=== PATIENT | male | born 1980 | race Asian ===

== ENCOUNTER 2017-05-17 03:16 | Emergency (ER) | payer SELFPAY ==
[~2017-05-17] VITALS: Ht 172.7 cm; Wt 79.4 kg
[2017-05-17] MEDS ORDERED: BENA20TA78 (03:26)
[2017-05-17] MEDS ORDERED: CLONIDINE HCL 0.1 MG TABLET PO ONE (03:30)
[2017-05-17] MEDS ORDERED: ENALAPRILAT DIHYDRATE 1.25 MG/1 ML VIAL IV ONE ×2 (03:30→04:14)
[2017-05-17 04:14] LABS: CREATININE 1.2 mg/dL (0.6-1.3); POTASSIUM 3.8 mmol/L (3.5-5.1)
[2017-05-17] MEDS ORDERED: CLONIDINE HCL 0.1 MG TABLET ONE (04:14)
[2017-05-17 04:27] LABS: BILIRUBIN,TOTAL 0.9 mg/dL (0.2-1.0); TOTAL PROTEIN, SERUM 8.1 g/dL (6.4-8.2)
[2017-05-17 04:43] LABS: BASOPHILS # (AUTO) 0.1 K/uL (0.0-8.0); EOSINOPHILS # (AUTO) 0.5 K/uL (0.0-0.7); EOSINOPHILS % (AUTO) 5.5 % (0.0-7.0); HEMATOCRIT 49.1 % (40-50); HEMOGLOBIN 16.9 G/DL (14.0-18.0); LYMPHOCYTES # (AUTO) 2.4 K/UL (0.8-4.8); LYMPHOCYTES % (AUTO) 27.8 % (20.5-51.5); MEAN CORPUSCULAR HEMOGLOBIN 28.7 UUG (27.0-31.0); MEAN CORPUSCULAR HGB CONC 34 g/dL (32.0-37.0); MEAN CORPUSCULAR VOLUME 83.4 FL (82.0-92.0); MONOCYTES # (AUTO) 0.6 K/UL (0.1-1.30); MONOCYTES % (AUTO) 6.8 % (0.0-11.0); NEUTROPHILS # (AUTO) 4.9 K/UL (1.8-8.9); NEUTROPHILS % (AUTO) 58.9 % (38.5-71.5); PLATELET COUNT (AUTO) 190 K/UL (150-450); RED BLOOD CELL COUNT(AUTO) 5.89 MIL/UL (4.7-6.1); WHITE BLOOD COUNT (AUTO) 8.5 K/UL (4.0-11.2)
[2017-05-17] MEDS ORDERED: hydrALAZINE HCL 20 MG/1 ML VIAL IV ONE (04:45)
[2017-05-17] MEDS ORDERED: hydrALAZINE HCL 20 MG/1 ML VIAL ONE (04:58)
[2017-05-17 05:04] LABS: *BILIRUBIN,URIN NEGATIVE (NEGATIVE); *BLOOD, URINE NEGATIVE (NEGATIVE); *CLARITY,URINE CLEAR (CLEAR); *COLOR,URINE YELLOW (YELLOW); *KETONES,URINE NEGATIVE (NEGATIVE); *PROTEIN,URINE NEGATIVE (NEGATIVE); *UROBILINOGEN,URINE 0.2 E.U./dl (NORMAL); LEUKOCYTE ESTERASE ,URINE NEGATIVE (NEGATIVE); NITRITE, URINE NEGATIVE (NEGATIVE); UGLUCOSE NEGATIVE (NEGATIVE)
[2017-05-17 05:15] LABS: RBC,URINE 0-3 /HPF (0-3); WBC,URINE NONE SEEN /HPF (0-3)
[2017-05-17 05:16] LABS: BACTERIA,URINE NONE SEEN /HPF (NONE SEEN); SQUAMOUS EPITHELIAL CELL,UR FEW /HPF (NONE SEEN)
--- NOTE | 2017-05-17 05:36 | NUR ---
Patient discharged to home in stable conditon. Written and verbal after care instructions given. Patient verbalizes understanding of instructions. Ambulated from ER with stable gait. All belongings with patient. Peripheral IV removed prior to dischrage.
[2017-05-17 05:37] VITALS: BP 140/82
== END 2017-05-17 05:46 | disposition home or self-care (01) ==
LOC: ER 03:22
DX: I10 Essential (primary) hypertension (principal)
CPT/HCPCS: 36415; 71045; 80053; 81001; 83880; 84484; 85025; 93005; 96374; 96375; 99285; A4663; J0360; J3490; 70030-TC